=== PATIENT | male | born 1940 | race Caucasian/White ===

== ENCOUNTER 2016-11-11 05:53 | Day surgery (SDC) | payer MEDICARE, OTHER ==
[2016-11-11] MEDS ORDERED: Lactated Ringers 1,000 ML IV SCH (07:00)
[2016-11-11] MEDS ORDERED: DIPRIVAN 200 MG/20 ML IV ONE (08:00)
[2016-11-11] MEDS ORDERED: Versed 2 MG/2 ML Injection IV ONE (08:00)
[2016-11-11] MEDS ORDERED: Lactated Ringers 1,000 ML IV ONE (08:51)
[2016-11-11 09:55] VITALS: O2SAT 98
[2016-11-11 10:36] VITALS: BP 159/96; PULSE 58
--- NOTE | 2016-11-11 10:38 | OP ---
SURGERY DATE/TIME: 11/11/2016 0746 PREOPERATIVE DIAGNOSIS: Screening colonoscopy. POSTOPERATIVE DIAGNOSES: 1) Two large broad based ascending colon polyps and one small sessile sigmoid colon polyp. 2) Long tortuous colon difficult exam. PROCEDURE: Colonoscopy. SURGEON: Ravindra Collins M.D. ANESTHESIA: MAC by Shankar Boateng CRNA. ESTIMATED BLOOD LOSS: Minimal. SPECIMENS: Two hot snare polypectomies from ascending colon polyps and one hot forceps polypectomy of descending colon polyp. DESCRIPTION OF PROCEDURE: The patient was taken to the endoscopy suite and underwent monitored anesthesia. Digital rectal exam showed normal sphincter tone and no internal lesions. The scope was inserted into the rectum and sequentially the entire colonic mucosa was traversed. There was great difficulty reaching the ascending colon and took multiple attempts to pass the hepatic flexure. There were two large broad based sessile polyps present in the ascending colon pericecal area. The first was initially biopsied with forceps but was found to be too large to be removed in this fashion. Therefore we switched to a snare. It was snared at the base and electrocautery was used to remove the entire lesions. Unfortunately it was unable to be retrieved but again a piece had been removed with the forceps prior to this polyp being removed. Position was lost and then again with great difficulty reaching the ascending colon. The other lesion was removed with the snare and retrieved in a trap immediately will be available for pathology testing. These two lesions were very close proximity. They were removed in their entirety and base was cauterized. Upon withdrawal another sessile polyp was encountered in the sigmoid colon and was removed with hot forceps in its entirety with good hemostasis. The scope was removed and the patient was transferred to the recovery room in good condition. Pathology is pending and he will follow up in the office in one week.
== END 2016-11-11 10:15 | disposition home or self-care (01) ==
LOC: SDC 05:53
PROVIDERS: ATTEND Family Medicine
PROC: 0DBK8ZX Excision of Ascending Colon, Via Natural or Artificial Opening Endoscopic, Diagnostic (ICD-10-PCS; principal; 2016-11-11)
PROC: 0DBM8ZX Excision of Descending Colon, Via Natural or Artificial Opening Endoscopic, Diagnostic (ICD-10-PCS; 2016-11-11)
DX: D12.2 Benign neoplasm of ascending colon (principal); D12.5 Benign neoplasm of sigmoid colon; I10 Essential (primary) hypertension
CPT/HCPCS: 00810; 36415; 88305; 99100; J2250; J2704

== ENCOUNTER 2016-11-21 09:21 | Emergency (ER) | payer MEDICARE, OTHER ==
[2016-11-21] MEDS ORDERED: Adacel Vial IM ONE ×2 (09:32→09:49)
[2016-11-21] MEDS ORDERED: XYLOCAINE 1%/Epi 1:100000 MDV 20 ML IJ ONE (09:32)
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
[2016-11-21 10:01] LABS: Mean Cell Volume 75.6 fl (78-100); Mean Corpuscular Hemoglobin 23.7 pg (26-32); Mean Platelet Volume 9.7 fl (6-9.5); Platelet Count 280 K/mm3 (150-450); Red Blood Count 4.47 M/mm3 (4.1-5.6); Red Cell Distribution Width 19.2 % (11.5-14.0); White Blood Count 8.5 K/mm3 (4.0-10.5)
[2016-11-21] MEDS ORDERED: XYLOCAINE 1% HCL 20 ML MDV IJ ONE (10:01)
[2016-11-21] MEDS ORDERED: XYLOCAINE 1% HCL 20 ML MDV ONE (10:02)
--- NOTE | 2016-11-21 10:08 | XRAY ---
Indication: Posterior head injury/laceration. Multiple contiguous axial images obtained through the head without contrast. Comparison: None Tiny focus of posterior scalp swelling/laceration near the vertex. No acute intracranial hemorrhage, abnormal extra-axial fluid collection, or mass effect. Age-appropriate global atrophy and minimal periventricular degenerative microvascular ischemia. Bony calvarium intact. Visualized paranasal sinuses and mastoid air cells are clear. Impression: Tiny posterior scalp swelling/laceration. Otherwise nonacute senile brain. CTDI 50.55
[2016-11-21 10:11] LABS: INR 2.66 (0.8-3.0); PROTIME 30.3 SECONDS (8.83-12.87)
[2016-11-21 10:35] VITALS: BP 128/63; PULSE 90; O2SAT 97
== END 2016-11-21 10:35 | disposition home or self-care (01) ==
LOC: ED 09:21
PROC: 0HQ0XZZ Repair Scalp Skin, External Approach (ICD-10-PCS; principal; 2016-11-21)
DX: S01.01XA Laceration without foreign body of scalp, initial encounter (principal); S09.90XA Unspecified injury of head, initial encounter; Z79.01 Long term (current) use of anticoagulants; W45.8XXA Other foreign body or object entering through skin, initial encounter; E11.9 Type 2 diabetes mellitus without complications; I10 Essential (primary) hypertension; Z79.899 Other long term (current) drug therapy; Z79.84 Long term (current) use of oral hypoglycemic drugs; Z79.4 Long term (current) use of insulin
CPT/HCPCS: 12011; 36415; 70450; 82962; 85027; 85610; 90471; 90715; 96372; 99284

== ENCOUNTER 2016-12-27 12:26 | Observation (INO) | payer MEDICARE, OTHER ==
[2016-12-27] MEDS ORDERED: Nitrostat 0.4 MG (ED) SL ONE (12:43)
[2016-12-27] MEDS ORDERED: BABY ASPIRIN 81 MG CHEW PO ONE ×2 (12:43→13:03)
[2016-12-27] MEDS ORDERED: Sodium Chloride 0.9% 1000 ML 1,000 ML IV SCH (12:45)
[2016-12-27 12:56] LABS: Mean Cell Volume 74.5 fl (78-100); Mean Platelet Volume 9.7 fl (6-9.5); Platelet Count 229 K/mm3 (150-450); Red Blood Count 4.19 M/mm3 (4.1-5.6); Red Cell Distribution Width 20.1 % (11.5-14.0); White Blood Count 9.1 K/mm3 (4.0-10.5)
[2016-12-27] MEDS ORDERED: BABY ASPIRIN 81 MG CHEW ONE (12:57)
[2016-12-27] MEDS ORDERED: Sodium Chloride 0.9% 1000 ML 1,000 ML ONE (12:57)
[2016-12-27 12:58] LABS: Mean Corpuscular Hemoglobin 23.8 pg (26-32)
[2016-12-27] MEDS ORDERED: NITRO-BID 2% UD PACKETS TOP ONE (13:03)
[2016-12-27] MEDS ORDERED: NITRO-BID 2% UD PACKETS ONE (13:05)
--- NOTE | 2016-12-27 13:11 | ERPHSYRPT ---
- History of Present Illness Time Seen by Provider: 12/27/16 12:50 Historian: patient Exam Limitations: other Patient Subjective Stated Complaint: chest pain for one hour Triage Nursing Assessment: ambulated to room without difficulty. some slight sob noted with exertion. denies any chest pain at this time. does state arms feel heavy and numb. skin w/d, color normal. heart tones regular, strong. no edema noted. Physician History: PATIENT WITH A HISTORY OF TYPE 2 DIABETES, HYPERTENSION AND CORONARY ARTERY DISEASE COMPLAINS OF SUBSTERNAL CHEST PRESSURE SHARP DISCOMFORT WHILE IN LATTER-DAY 1 HOUR, RADIATES TO RIGHT ARM, ASSOCIATED NUMBNESS AND MARKED DIAPHORESIS. HAS CHRONIC EXERTIONAL DYSPNEA. STATES HIS PAIN RESOLVED PRIOR TO EMERGENCY ROOM ARRIVAL. Timing/Duration: today Activities at Onset: none Quality: pressure, sharpness Location: substernal Chest Pain Radiation: arm Severity of Pain-Max: moderate Severity of Pain-Current: none Associated Symptoms: shortness of breath, diaphoresis Prior Chest Pain/Cardiac Workup: cardiac cath Nitro Today/Relief: no nitro taken today Aspirin Treatment Today: 81 mg x 4, provided by ED Allergies/Adverse Reactions: lisinopril Allergy (Unknown, Verified 12/27/16 12:49) Tightness of Throat naproxen Allergy (Unknown, Verified 12/27/16 12:49) rofecoxib [From Vioxx] Allergy (Unknown, Verified 12/27/16 12:49) Home Medications: Amlodipine Besylate 5 mg [Norvasc 5 mg] 5 mg PO BID 11/06/16 [History] Atorvastatin Calcium [Lipitor] 20 mg PO DAILY 11/06/16 [History] Calcium Carbonate [Calcium] 1,500 mg PO DAILY 11/06/16 [History] Carvedilol 12.5 mg [Coreg 12.5 mg] 12.5 mg PO BID 11/06/16 [History] Docusate Sodium 100 mg [Colace 100 MG] 200 mg PO DAILY 11/06/16 [History] Glimepiride 4 mg [Amaryl 4 mg] 4 mg PO DAILY 11/06/16 [History] Metformin HCl 500 mg [Glucophage 500 MG] 1,000 mg PO BID 11/06/16 [History ] Omeprazole 20 MG [Prilosec 20 mg] 20 mg PO BID 11/06/16 [History] Simethicone [Gas Relief] 250 mg PO BID 11/06/16 [History] Warfarin Sodium 2 mg [Coumadin 2 MG] 7.5 mg PO 3XW 11/06/16 [History] Warfarin Sodium 5 mg [Coumadin 5 MG] 5 mg PO 3XW 11/06/16 [History] Isosorbide Mononitrate 30 mg [Imdur 30 MG] 30 mg PO DAILY 12/27/16 [History ] NPH, Human Insulin Isophane [Humulin N] 40 unit SQ BID 12/27/16 [History] Hx Tetanus, Diphtheria Vaccination/Date Given: Yes (11/21/16) Hx Influenza Vaccination/Date Given: Yes Hx Pneumococcal Vaccination/Date Given: Yes - Review of Systems Constitutional: No Fever, No Chills Eyes: No Symptoms Ears, Nose, & Throat: No Symptoms Respiratory: No Cough, No Dyspnea Cardiac: Chest Pain, No Edema, No Syncope Abdominal/Gastrointestinal: No Symptoms, No Abdominal Pain, No Nausea, No Vomiting, No Diarrhea Genitourinary Symptoms: No Symptoms, No Dysuria Musculoskeletal: No Symptoms, No Back Pain, No Neck Pain Skin: No Rash Neurological: No Dizziness, No Focal Weakness, No Sensory Changes Psychological: No Symptoms Endocrine: No Symptoms All Other Systems: Reviewed and Negative - Past Medical History Pertinent Past Medical History: Yes Neurological History: No Pertinent History ENT History: No Pertinent History Cardiac History: Hypertension Respiratory History: Sleep Apnea Endocrine Medical History: Diabetes Type II Musculoskeletal History: No Pertinent History GI Medical History: GERD History: No Pertinent History Psycho-Social History: No Pertinent History Male Reproductive Disorders: No Pertinent History - Past Surgical History Past Surgical History: Yes Neuro Surgical History: No Pertinent History Cardiac: Cardiac Catheterization Respiratory: No Pertinent History Gastrointestinal: No Pertinent History Genitourinary: No Pertinent History Musculoskeletal: Orthopedic Surgery Male Surgical History: Other Other Surgical History: left knee replacemnet,back surgery. colonoscopy. penal pump. heart cath pt dosent know why he had it - Social History Smoking Status: Former smoker Exposure to second hand smoke: No Drug Use: none Patient Lives Alone: No - Nursing Vital Signs Nursing Vital Signs: Initial Vital Signs Temperature 97.8 F 12/27/16 12:41 Pulse Rate 66 12/27/16 12:41 Respiratory Rate 16 12/27/16 12:41 Blood Pressure 121/28 12/27/16 12:41 O2 Sat by Pulse Oximetry 96 12/27/16 12:41 Pain Scale Pain Intensity 0 - Physical Exam General Appearance: no apparent distress, alert Eye Exam: PERRL/EOMI, eyes nml inspection Ears, Nose, Throat Exam: normal ENT inspection, moist mucous membranes Neck Exam: normal inspection, non-tender, supple, full range of motion Respiratory Exam: normal breath sounds, lungs clear, No respiratory distress Cardiovascular Exam: regular rate/rhythm, normal heart sounds Gastrointestinal/Abdomen Exam: soft, normal bowel sounds, No tenderness, No mass Back Exam: normal inspection, No CVA tenderness, No vertebral tenderness Extremity Exam: normal inspection, normal range of motion Neurologic Exam: alert, oriented x 3, cooperative, normal mood/affect, sensation nml, No motor deficits Skin Exam: normal color, warm, dry SpO2: 96 Oxygen Delivery: Room Air - Course EKG Interpreted by Me: RATE, Sinus Rhythm, Left Normanna Deviation (FLAT T WAVES LATERALLY) - Radiology Exams Chest X-ray Interpretation: Interpreted by me (MODERATE CARDIOMEGALY, WITHOUT INFILTRATES OR CONGESTIVE HEART FAILURE) Ordered Tests: Active Orders 24 hr Category Date Time Status Bedrest ROUTINE Activity 12/27/16 14:08 Ordered Bedrest with BRP/BSC ROUTINE Activity 12/27/16 14:08 Ordered Accucheck ACHS Care 12/27/16 14:08 Ordered Admission/Status Order ROUTINE Care 12/27/16 14:08 Ordered Call Admit Doctor for Orders ROUTINE Care 12/27/16 14:08 Ordered Cps Team Lead STAT Care 12/27/16 12:43 Active Code Status Order ROUTINE Care 12/27/16 14:08 Ordered EKG-ER Only STAT Care 12/27/16 12:43 Active IV Care Q6H Care 12/27/16 14:08 Ordered IV Insertion STAT Care 12/27/16 12:43 Active Implement Chest Pain Pathway ROUTINE Care 12/27/16 14:08 Ordered Oxygen-ED Only NASAL CANNULA 2 lpm Care 12/27/16 12:43 Active Luke Hose, Apply ROUTINE Care 12/27/16 14:08 Ordered Telemetry ROUTINE Care 12/27/16 14:08 Ordered Vital Signs Q4H Care 12/27/16 14:08 Ordered Weight,Daily 0600 Care 12/27/16 14:08 Ordered 2000 Calorie ADA Diet 12/27/16 Dinner Ordered Cardiac Diet Diet 12/27/16 Dinner Ordered CHEST 1 VIEW (PORTABLE) Stat Exams 12/27/16 12:43 Taken CBC W DIFF Stat Lab 12/27/16 12:45 Completed CMP Stat Lab 12/27/16 12:45 Completed LIPID PROFILE AM.LAB Lab 12/28/16 04:00 Ordered Manual Differential NC Stat Lab 12/27/16 12:45 Completed NT PRO BNP Stat Lab 12/27/16 13:03 Completed PROTIME WITH INR Stat Lab 12/27/16 12:45 Completed TROPONIN Q3H Lab 12/27/16 12:45 Completed TROPONIN Q3H Lab 12/27/16 15:45 Ordered TROPONIN Q3H Lab 12/27/16 18:45 Ordered TROPONIN Q3H Lab 12/27/16 21:45 Ordered TROPONIN Q3H Lab 12/28/16 00:45 Ordered EKG Q8HX2,QAMX3,PRN RT 12/27/16 14:08 Ordered Pulse Oximetry Q4H RT 12/27/16 14:08 Ordered Transfer Order Routine Transfer 12/27/16 Ordered Medication Summary Generic Name Dose Route Start Last Admin Trade Name Freq PRN Reason Stop Dose Admin Sodium Chloride 1,000 mls @ 50 mls/hr 12/27/16 12:45 12/27/16 13:00 Sodium Chloride 0.9% 1000 Ml IV 01/26/17 12:44 50 mls/hr .Q20H JOEY Administration Discontinued Medications Generic Name Dose Route Start Last Admin Trade Name Freq PRN Reason Stop Dose Admin Aspirin 324 mg 12/27/16 12:43 12/27/16 13:00 Baby Aspirin 81 Mg Chew PO 12/27/16 12:44 324 mg STAT ONE Administration Aspirin Confirm 12/27/16 12:57 Baby Aspirin 81 Mg Chew Administered 12/27/16 12:58 Dose 324 mg .ROUTE .STK-MED ONE Aspirin 324 mg 12/27/16 13:03 12/27/16 13:09 Baby Aspirin 81 Mg Chew PO 12/27/16 13:04 Not Given STAT ONE Nitroglycerin 0.4 mg 12/27/16 12:43 12/27/16 13:04 Nitrostat 0.4 Mg (Ed) SL 12/27/16 12:44 Not Given STAT ONE Nitroglycerin 1 gm 12/27/16 13:03 12/27/16 13:06 Nitro-Bid 2% Ud Packets TOP 12/27/16 13:04 1 gm STAT ONE Administration Nitroglycerin Confirm 12/27/16 13:05 Nitro-Bid 2% Ud Packets Administered 12/27/16 13:06 Dose 1 gm .ROUTE .STK-MED ONE Lab/Rad Data: Laboratory Result Diagrams 12/27/16 12:45 12/27/16 12:45 Laboratory Results 12/27/16 12/27/16 12/27/16 Range/Units 13:03 12:45 12:45 WBC (4.0-10.5) K/mm3 RBC (4.1-5.6) M/mm3 Hgb (12.5-18.0) gm/dl Hct (42-50) % MCV (78-100) fl MCH (26-32) pg MCHC (32-36) g/dl RDW (11.5-14.0) % Plt Count (150-450) K/mm3 MPV (6-9.5) fl Segmented Neutrophils (36.-66.) % Lymphocytes (Manual) (24-44) % Monocytes (Manual) (0.0-12.0) % Differential Comment Platelet Estimate (NORMAL) Poikilocytosis Anisocytosis INR 2.66 (0.8-3.0) Sodium (136-145) mEq/L Potassium (3.5-5.1) mEq/L Chloride (98-107) mEq/L Carbon Dioxide (21-32) mEq/L Anion Gap (5-15) MEQ/L BUN (9-20) mg/dL Creatinine (0.55-1.30) mg/dl Estimated GFR ML/MIN Glucose (70-110) MG/DL Calcium (8.5-10.1) mg/dL Total Bilirubin (0.2-1.0) mg/dL AST (15-37) U/L ALT (12-78) U/L Alkaline Phosphatase (46-116) U/L Troponin I < 0.017 (0.000-0.056) ng/ml NT-Pro-B Natriuret Pep 302 (0-450) pg/ml Serum Total Protein (6.4-8.2) gm/dL Albumin (3.4-5.0) g/dL 12/27/16 12/27/16 Range/Units 12:45 12:45 WBC 9.1 (4.0-10.5) K/mm3 RBC 4.19 (4.1-5.6) M/mm3 Hgb 10.0 L (12.5-18.0) gm/dl Hct 31.2 L (42-50) % MCV 74.5 L (78-100) fl MCH 23.8 L (26-32) pg MCHC 32.1 (32-36) g/dl RDW 20.1 H (11.5-14.0) % Plt Count 229 (150-450) K/mm3 MPV 9.7 H (6-9.5) fl Segmented Neutrophils 57 (36.-66.) % Lymphocytes (Manual) 36 (24-44) % Monocytes (Manual) 7 (0.0-12.0) % Differential Comment ABNORMAL Platelet Estimate NORMAL (NORMAL) Poikilocytosis 1+ Anisocytosis 1+ INR (0.8-3.0) Sodium 136 (136-145) mEq/L Potassium 4.2 (3.5-5.1) mEq/L Chloride 102 (98-107) mEq/L Carbon Dioxide 21.0 (21-32) mEq/L Anion Gap 16.9 H (5-15) MEQ/L BUN 16 (9-20) mg/dL Creatinine 1.12 (0.55-1.30) mg/dl Estimated GFR > 60 ML/MIN Glucose 193 H (70-110) MG/DL Calcium 8.7 (8.5-10.1) mg/dL Total Bilirubin 0.40 (0.2-1.0) mg/dL AST 17 (15-37) U/L ALT 25 (12-78) U/L Alkaline Phosphatase 62 (46-116) U/L Troponin I (0.000-0.056) ng/ml NT-Pro-B Natriuret Pep (0-450) pg/ml Serum Total Protein 7.0 (6.4-8.2) gm/dL Albumin 3.4 (3.4-5.0) g/dL - Progress Progress Note: 12/27/16 14:04 PATIENT ADMINISTERED BABY ASA X 4, NITROPASTE 1" ANTERIOR CHEST WALL, REMAINS PAIN FREE THROUGHOUT EMERGENCY VISIT Discussed with Dr.: Other (DISCUSSED WITH DR WILD AT 1400 FOR ADMISSION) - Departure Time of Disposition: 14:10 Departure Disposition: Observation Clinical Impression: ACUTE CHEST PAIN Condition: Stable Critical Care Time: No Referrals: KWABENA BEARD [Primary Care Provider] -
[2016-12-27 13:14] LABS: ANISOCYTOSIS 1+; Platelet Estimate NORMAL (NORMAL); Poikilocytosis 1+; Total Cells Counted 100
[2016-12-27 13:19] LABS: ALBUMIN 3.4 g/dL (3.4-5.0); ALKALINE PHOSPHATASE 62 U/L (46-116); ANION GAP 16.9 MEQ/L (5-15); BLOOD UREA NITROGEN 16 mg/dL (9-20); CHLORIDE 102 mEq/L (98-107); Glucose 193 MG/DL (70-110); Potassium 4.2 mEq/L (3.5-5.1); SGOT/AST 17 U/L (15-37); SGPT/ALT 25 U/L (12-78); SODIUM 136 mEq/L (136-145)
[2016-12-27 13:20] LABS: INR 2.66 (0.8-3.0); PROTIME 30.3 SECONDS (8.83-12.87)
[2016-12-27] MEDS ORDERED: TYLENOL 325 MG PO PRN (14:08)
[2016-12-27] MEDS ORDERED: MAALOX ES 30 ML UNIT DOSE PO PRN (14:08)
[2016-12-27] MEDS ORDERED: Nitrostat 0.4 MG Tablet SL PRN (14:08)
[2016-12-27] MEDS ORDERED: MORPHINE SULFATE 2 MG INJ IV PRN (14:08)
[2016-12-27] MEDS ORDERED: Zofran 4 MG/2 ML VIAL IV PRN (14:08)
[2016-12-27] MEDS ORDERED: Senokot-S Tablet PO PRN (14:08)
[2016-12-27] MEDS ORDERED: NovoLOG Insulin SQ SCH (17:00)
[2016-12-27] MEDS ORDERED: Glucophage 500 MG PO SCH (17:00)
[2016-12-27] MEDS ORDERED: NovoLIN R SQ PRN (17:04)
[2016-12-27] MEDS: Protonix 40MG Tablet PO SCH ×2 (17:46→22:42)
[2016-12-27] MEDS: Novolin N SQ SCH ×2 (17:46→23:08)
[2016-12-27] MEDS: NORVASC 5 MG PO SCH ×2 (17:51→22:42)
--- NOTE | 2016-12-27 19:01 | XRAY ---
Indication: Chest pain. Comparison: None Portable chest demonstrates bilateral calcified pleural plaquing. No focal infiltrate, consolidation, or large effusion. Heart is not enlarged for AP portable technique. Bony thorax intact with mild degenerative changes. Impression: Nonacute chest with chronic features.
[2016-12-27] MEDS ORDERED: Mylicon 80MG PO SCH (22:00)
[2016-12-27] MEDS: NITRO-BID 2% UD PACKETS TOP SCH (22:41)
[2016-12-27] MEDS: COREG 12.5 MG PO SCH (22:41)
[2016-12-28] MEDS: NITRO-BID 2% UD PACKETS TOP SCH (06:20)
[2016-12-28] MEDS ORDERED: Coumadin 2 MG PO SCH (07:30)
[2016-12-28 07:50] VITALS: BP 130/62; PULSE 63; O2SAT 99
[2016-12-28] MEDS ORDERED: AMARYL 4 MG PO SCH (08:00)
[2016-12-28] MEDS: Novolin N SQ SCH (08:27)
--- NOTE | 2016-12-28 08:29 | PCM.SSS ---
History of Present Illness - Chief Complaint Chief Complaint: accute chest pain History of Present Illness: is a 76 year old male with DM on insulin who was admitted yesterday for chest pain. He started having substernal chest pain radiating to the R arm with diaphoresis and shortness of breath. The pain resolved by the time he got to the ER. He is not complaining of anything to me this morning but did tell the RN he is having some SOB with walking. - Review of Systems Constitutional: Other (cold intolerance x 1 yr) Respiratory: Short Of Breath Cardiac: Chest Pain, Syncope (3 weeks ago, evaluation done outpatient) Psychological: No Anxiety, No Depression, No Suicidal Ideations Hematologic/Lymphatic: Anemia (mild) All Other Systems: Reviewed and Negative Medications & Allergies Home Medications: Home Medication List Amlodipine Besylate 5 mg [Norvasc 5 mg] 5 mg PO BID 11/06/16 [History Confirmed 12/27/16] Atorvastatin Calcium [Lipitor] 20 mg PO DAILY 11/06/16 [History Confirmed ] Calcium Carbonate [Calcium] 1,500 mg PO DAILY 11/06/16 [History Confirmed ] Carvedilol 12.5 mg [Coreg 12.5 mg] 12.5 mg PO BID 11/06/16 [History Confirmed 12/27/16] Docusate Sodium 100 mg [Colace 100 MG] 200 mg PO DAILY 11/06/16 [History Confirmed 12/27/16] Glimepiride 4 mg [Amaryl 4 mg] 4 mg PO DAILY 11/06/16 [History Confirmed 12/27/16] Metformin HCl 500 mg [Glucophage 500 MG] 1,000 mg PO BID 11/06/16 [ History Confirmed 12/27/16] Omeprazole 20 MG [Prilosec 20 mg] 20 mg PO BID 11/06/16 [History Confirmed 12/27] Simethicone [Gas Relief] 250 mg PO BID 11/06/16 [History Confirmed 12/27/16] Warfarin Sodium 2 mg [Coumadin 2 MG] 7.5 mg PO 3XW 11/06/16 [History Confirmed 12/27/16] Warfarin Sodium 5 mg [Coumadin 5 MG] 5 mg PO 3XW 11/06/16 [History Confirmed 12/27/16] Isosorbide Mononitrate 30 mg [Imdur 30 MG] 30 mg PO DAILY 12/27/16 [ History Confirmed 12/27/16] NPH, Human Insulin Isophane [Humulin N] 40 unit SQ BID 12/27/16 [History Confirmed 12/27/16] Allergies/Adverse Reactions: Allergies Allergy/AdvReac Type Severity Reaction Status Date / Time lisinopril Allergy Unknown Tightness Verified 12/27/16 12:49 of Throat naproxen Allergy Unknown Verified 12/27/16 12:49 rofecoxib [From Vioxx] Allergy Unknown Verified 12/27/16 12:49 - Past Medical History Past Medical History: No Neurological History: No Pertinent History ENT History: No Pertinent History Cardiac History: High Cholesterol Respiratory History: No Pertinent History Endocrine Medical History: Diabetes Type II Musculoskelatal History: Arthritis GI Medical History: No Pertinent History History: No Pertinent History Pyscho-Social History: No Pertinent History Male Reproductive Disorders: No Pertinent History - Past Surgical History Past Surgical History: No Neuro Surgical History: No Pertinent History Cardiac History: No Pertinent History Respiratory Surgery: No Pertinent History GI Surgical History: No Pertinent History Genitourinary Surgical Hx: No Pertinent History Musculskeletal Surgical Hx: Orthopedic Surgery Male Surgical History: No Pertinent History Other Surgical History: left knee replacemnet,back surgery. colonoscopy. penal pump. heart cath pt dosent know why he had it - Social History Smoking Status: Never smoker Exposure to second hand smoke: No Alcohol: None Drug Use: none - Physical Exam Vital Signs: Vital Signs - 24 hr Temp Pulse Pulse Resp BP Pulse Ox 12/28/16 07:49 97.5 F 63 18 130/62 99 12/28/16 07:03 97 12/28/16 06:53 70 18 99 12/28/16 04:00 97.6 F 73 18 113/59 98 12/27/16 23:35 97.9 F 71 20 133/74 97 12/27/16 21:22 72 16 98 12/27/16 15:19 98.6 F 58 L 12 144/63 96 12/27/16 14:27 59 L 15 115/57 98 12/27/16 14:16 96 12/27/16 13:30 62 17 119/47 98 12/27/16 13:09 65 16 136/58 95 12/27/16 12:41 97.8 F 67 66 16 121/28 96 Oxygen-Last 24 hours O2 Percentage 2 Liters = 28% O2 Percentage 2 Liters = 28% O2 Percentage 2 Liters = 28% O2 Percentage 2 Liters = 28% O2 Percentage 2 Liters = 28% O2 Percentage 2 Liters = 28% O2 Percentage 2 Liters = 28% O2 Percentage 2 Liters = 28% General Appearance: no apparent distress Neurologic Exam: alert, oriented x 3, cooperative Eye Exam: eyes nml inspection Ears, Nose, Throat Exam: moist mucous membranes Neck Exam: normal inspection, non-tender, supple, No lymphadenopathy Respiratory Exam: normal breath sounds, lungs clear, No crackles/rales, No rhonchi, No wheezing Cardiovascular Exam: regular rate/rhythm, normal heart sounds, No murmur Gastrointestinal/Abdomen Exam: soft, normal bowel sounds, No tenderness, No distention, No mass, No guarding, No rebound Back Exam: normal inspection Extremity Exam: swelling (Trace LE edema bilat) Skin Exam: normal color, warm, dry Results - Labs Lab/Micro Results: Accuchecks Date 12/28/16 Date 12/27/16 Time 22:30 Time 16:30 Accucheck Value: 155 Accucheck Value: 155 Lab Results-Last 24 Hours 12/27/16 12/27/16 12/27/16 Range/Units 16:02 18:42 21:38 Troponin I < 0.017 < 0.017 < 0.017 (0.000-0.056) ng/ml Triglycerides (30-200) mg/dL Cholesterol (100-200) mg/dL LDL Cholesterol (5-99) mg/dL HDL Cholesterol (35-60) mg/dL Heart Disease Risk Ratio 12/28/16 12/28/16 Range/Units 00:52 05:15 Troponin I < 0.017 (0.000-0.056) ng/ml Triglycerides 106 (30-200) mg/dL Cholesterol 94 L (100-200) mg/dL LDL Cholesterol 41 (5-99) mg/dL HDL Cholesterol 30 L (35-60) mg/dL Heart Disease Risk Ratio 3.1 Accuchecks Date 12/28/16 Date 12/27/16 Time 22:30 Time 16:30 Accucheck Value: 155 Accucheck Value: 155 - Other Procedures and Tests Respiratory Therapy 12/27/16 21:21 Oxygen NASAL CANNULA 2 lpm 12/29/16 05:00 EKG ONCE 12/30/16 05:00 EKG ONCE Assessment/Plan (1) Chest pain Current Visit: Yes Status: Acute Qualifiers: Chest pain type: other chest pain Qualified Code(s): R07.89 - Other chest pain; R07.8 - Other chest pain Assessment & Plan: NH ruled out. His last stress test was over 1 yr ago - will send report to his bioprocessing manufacturing technician in [place], advised pt he may need an outpatient stress test. Code(s): R07.9 - CHEST PAIN, UNSPECIFIED (2) Diabetes mellitus Current Visit: Yes Status: Acute Qualifiers: Diabetes mellitus type: type 2 Diabetes mellitus complication status: without complication Diabetes mellitus termite control service representative insulin use: with termite control service representative use Qualified Code(s): E11.9 - Type 2 diabetes mellitus without complications ; Z79.4 - nursing home (current) use of insulin Assessment & Plan: He is on lantus at home, and also states he takes 40 units of insulin BID in addition to that - I've advised the pt and his son that they need to let me know CHRIS which kind of insulin that is. I assume it is a mix; at any rate he should NOT be taking regular insulin 40 units BID. He did have some low BS this morning, resolved with po intake. Code(s): E11.9 - TYPE 2 DIABETES MELLITUS WITHOUT COMPLICATIONS (3) Dyspnea Current Visit: Yes Status: Acute Qualifiers: Dyspnea type: dyspnea on exertion Qualified Code(s): R06.09 - Other forms of dyspnea Assessment & Plan: Will see if pt qualifies for O2 this morning. Otherwise, oK to d/c home. Code(s): R06.00 - DYSPNEA, UNSPECIFIED Hospital Summary - Hospital Course Hospital Course: Admitted with CP, NH ruled out. He did have some hypoglycemia the next morning. He is complaining to the nurse of some dyspnea; has been on O2 here in the hospital. Will see if he qualifies for home O2 before discharge. He is to f/u with his bioprocessing manufacturing technician. - Vitals & Intake/Output Vital Signs: Vital Signs Temperature 97.5 F 12/28/16 07:49 Pulse Rate 63 12/28/16 07:49 Respiratory Rate 18 12/28/16 07:49 Blood Pressure 130/62 12/28/16 07:49 O2 Sat by Pulse Oximetry 99 12/28/16 07:49 Oxygen-Last Documented O2 Percentage 2 Liters = 28% Intake & Output: Intake & Output 12/25/16 12/26/16 12/27/16 12/28/16 11:59 11:59 11:59 11:59 Intake Total 1998 Output Total 3330 Balance -1331 Weight 119.023 kg - Lab Result Diagrams: 12/27/16 12:45 12/27/16 12:45 Lab Results-Last 24 Hrs: Accuchecks Date 12/28/16 Date 12/27/16 Time 22:30 Time 16:30 Accucheck Value: 155 Accucheck Value: 155 Lab Results-Last 24 Hours 12/27/16 12/27/16 12/27/16 Range/Units 16:02 18:42 21:38 Troponin I < 0.017 < 0.017 < 0.017 (0.000-0.056) ng/ml Triglycerides (30-200) mg/dL Cholesterol (100-200) mg/dL LDL Cholesterol (5-99) mg/dL HDL Cholesterol (35-60) mg/dL Heart Disease Risk Ratio 12/28/16 12/28/16 Range/Units 00:52 05:15 Troponin I < 0.017 (0.000-0.056) ng/ml Triglycerides 106 (30-200) mg/dL Cholesterol 94 L (100-200) mg/dL LDL Cholesterol 41 (5-99) mg/dL HDL Cholesterol 30 L (35-60) mg/dL Heart Disease Risk Ratio 3.1 Micro Results-Entire Visit: Accuchecks Date 12/28/16 Date 12/27/16 Time 22:30 Time 16:30 Accucheck Value: 155 Accucheck Value: 155 - Procedures and Test Procedures and Tests throughout Hospitalization: Therapy Orders & Screens 12/27/16 20:30 EKG ONCE Comment: 12/27/16 21:21 Oxygen NASAL CANNULA 2 lpm Comment: Diagnosis: accute chest pain 12/28/16 05:00 EKG ONCE Comment: 12/29/16 05:00 EKG ONCE Comment: 12/30/16 05:00 EKG ONCE Comment: - Discharge Disposition: Home, Self-Care Condition: Stable Prescriptions: No Action Warfarin Sodium 5 mg [Coumadin 5 MG] 5 mg PO 3XW Warfarin Sodium 2 mg [Coumadin 2 MG] 7.5 mg PO 3XW Simethicone [Gas Relief] 250 mg PO BID Omeprazole 20 MG [Prilosec 20 mg] 20 mg PO BID Metformin HCl 500 mg [Glucophage 500 MG] 1,000 mg PO BID Glimepiride 4 mg [Amaryl 4 mg] 4 mg PO DAILY Docusate Sodium 100 mg [Colace 100 MG] 200 mg PO DAILY Carvedilol 12.5 mg [Coreg 12.5 mg] 12.5 mg PO BID Calcium Carbonate [Calcium] 1,500 mg PO DAILY Atorvastatin Calcium [Lipitor] 20 mg PO DAILY Amlodipine Besylate 5 mg [Norvasc 5 mg] 5 mg PO BID Isosorbide Mononitrate 30 mg [Imdur 30 MG] 30 mg PO DAILY NPH, Human Insulin Isophane [Humulin N] 40 unit SQ BID Follow up with: KWABENA BEARD [Primary Care Provider] -
[2016-12-28] MEDS: Protonix 40MG Tablet PO SCH (09:42)
[2016-12-28] MEDS: NORVASC 5 MG PO SCH (09:42)
[2016-12-28] MEDS: COREG 12.5 MG PO SCH (09:42)
[2016-12-28] MEDS ORDERED: Colace 100 MG PO SCH (10:00)
[2016-12-28] MEDS ORDERED: Imdur 30 MG PO SCH (10:00)
[2016-12-28] MEDS ORDERED: Calcium 500MG W/Vit D Tablet PO SCH (10:00)
[2016-12-28] MEDS ORDERED: Mylicon 80MG PO SCH (10:00)
[2016-12-28] MEDS ORDERED: NORVASC 5 MG PO SCH (10:00)
[2016-12-28] MEDS ORDERED: Ecotrin 325 MG PO SCH (10:00)
[2016-12-28] MEDS ORDERED: ZOCOR 20MG PO SCH (10:00)
[2016-12-28] MEDS ORDERED: Coumadin 5 MG PO SCH ×2 (18:00)
[2016-12-29] MEDS ORDERED: Coumadin 2.5 MG PO SCH (18:00)
== END 2016-12-28 10:00 | disposition home or self-care (01) ==
LOC: ED 12:26 → MED SURG 14:36
PROVIDERS: ADMIT Family Medicine; ATTEND Family Medicine
DX: R07.89 Other chest pain (principal); E11.9 Type 2 diabetes mellitus without complications; Z79.4 Long term (current) use of insulin; Z79.01 Long term (current) use of anticoagulants; Z79.899 Other long term (current) drug therapy
CPT/HCPCS: 36000; 36415; 71010; 80053; 80061; 82962; 83036; 83721; 83880; 84484; 85025; 85610; 93005; 93041; 93268; 94760; 96360; 96361; 99285; G0378; A9270-GY

== ENCOUNTER 2019-07-03 08:22 | Day surgery (SDC) | payer MEDICARE, OTHER ==
[2019-07-03] MEDS ORDERED: Lactated Ringers 1,000 ML IV ONE (08:29)
--- NOTE | 2019-07-03 08:30 | HP ---
DATE OF SURGERY: 07/03/2019 HISTORY OF PRESENT ILLNESS: The patient is an 78 year-old with last colonoscopy more than ten years ago and had a polyp, had some right lower quadrant aches and pains over the past five months. He has had some change in bowel movements, increased urgency and loose stools. No bloody stools. Family history negative for colon cancer and negative inflammatory bowel disease. PAST MEDICAL HISTORY: Includes diabetes, had some lung disease, some joint problems. Hypertension followed by a donor specialist. History of stent in the past. PAST SURGICAL HISTORY: Bladder surgery 2019. Right knee surgery in the past. History of stent in the past. MEDICATIONS: Metformin, carvedilol, ferrous sulfate, stool softener, amlodipine, diltiazem, isosorbide mononitrate, atorvastatin, magnesium oxide, omeprazole, warfarin, Novolin. ALLERGIES: LISINOPRIL. ROFECOXIB. NAPROXEN. FAMILY HISTORY: Negative in regards to this problem. SOCIAL HISTORY: No current smoking. REVIEW OF SYSTEMS: Fourteen systems reviewed. No chest pain or palpitations. Pertinent for as noted above. Heart disease and stent in the past. PHYSICAL EXAMINATION: GENERAL: No acute distress. HEENT: Sclerae nonicteric. NECK: No JVD. CHEST: Equal excursion, nonlabored breathing. CVS: Regular rate and rhythm. ABDOMEN: Soft with some mild tenderness in the right lower quadrant. No peritoneal signs. EXTREMITIES: No significant edema. NEURO: Alert, oriented, moving extremities symmetrically. No gross motor deficits noted. RECTAL: Deferred timed to endoscopy exam. IMPRESSION: History of polyps, last colonoscopy ten years ago. He has had some vague right-sided aches, lower abdominal aches. I feel he will benefit from follow up screening colonoscopy as his last colonoscopy is more than ten years ago and he had history of polyps in the past. He was shown the risk sheet, explained the procedure in detail including but not limited to bleeding or infection, risk of bowel injury or perforation possibly requiring open procedure, small risk of missed or nondiagnosis or incomplete exam possibly requiring barium enema, other studies or procedures, general risk of anesthesia or sedation but not limited to, will proceed with outpatient follow-up screening colonoscopy.
[2019-07-03] MEDS: Lactated Ringers 1,000 ML IV SCH (09:12)
[2019-07-03] MEDS ORDERED: DIPRIVAN 200 MG/20 ML IV ONE ×2 (09:34→10:31)
[2019-07-03] MEDS ORDERED: KEFZOL 1 GM ONE (11:04)
[2019-07-03] MEDS ORDERED: SUBLIMAZE 100 MCG/2 ML ONE (11:26)
[2019-07-03 11:35] VITALS: O2SAT 99
[2019-07-03 14:21] VITALS: BP 125/60; PULSE 58
--- NOTE | 2019-07-04 08:21 | OP ---
SURGERY DATE/TIME: 07/03/2019 1017 PREOPERATIVE DIAGNOSIS: History of polyp, last colonoscopy ten years or so ago and in need for follow up screening colonoscopy. History of some intermittent right abdominal aches. POSTOPERATIVE DIAGNOSES: 1) Limited bowel prep. 2) Multiple colon polyps. 3) Diverticulosis. 4) Small internal and external hemorrhoids. PROCEDURES: 1) Colonoscopy to cecum with random cold biopsies right colon to evaluate for microscopic colitis. 2) Hot biopsy removal of small cecal polyp, small transverse colon polyps, small descending colon polyp. 3) Hot biopsy removal of four ascending colon polyps removed with hot snare polypectomy. 4) Hot snare polypectomy of sigmoid colon polyps x2. SURGEON: Dr. Max Macedo. ANESTHESIA: MAC. ESTIMATED BLOOD LOSS: Minimal. INDICATIONS: As noted above. Risks and benefits explained in detail but not limited to and consent obtained. DESCRIPTION OF PROCEDURE AND FINDINGS: The patient is taken to the operating room. MAC anesthesia introduced. After official time out and no disagreement with planned procedure, digital rectal exam did not reveal any rectal masses. He did have some small internal and external hemorrhoids. Video colonoscope was passed up through the limited prepped colon with several areas of liquidy semi-solid stool. It required quite a bit of time this was suction irrigated clear. The scope slowly passed through a very tortuous colon. With external pressure passed around to the cecum, appendiceal orifice and valve well visualized. Prep overall was limited. Otherwise a small polyp in the ascending colon removed with hot biopsy forceps. Some random cold biopsies taken of right colon. There was no evidence of any microscopic colitis. Random cold biopsies taken to evaluate for microscopic colitis. The tip of the terminal ileum was grossly unremarkable. The scope is slowly and carefully withdrawn. There were four polyps in the ascending colon removed with hot snare polypectomy with brief bursts of cautery, ranging in size from 4 mm to 7 or 8 mm. The scope pulled back to transverse colon. Another small polyp removed with hot biopsy forceps with brief bursts of cautery. Another small polyp in the descending colon removed with hot biopsy forceps. Back in the sigmoid colon two polyps ranging in size 5 to 8 mm range removed with hot snare polypectomy with brief bursts of cautery. Again, hot snare was used as he is going to have to go back on his blood thinners. He did have some diverticulosis. Again, the prep overall was limited for very small lesions. He had some small internal and external hemorrhoids. There were no signs of any large masses or obstructing lesions. The scope was withdrawn. He had at least ten polyps. There were no immediate complications. Findings discussed with the family out in the waiting area. I will see him back in the office next week.
== END 2019-07-03 12:15 | disposition home or self-care (01) ==
LOC: SDC 08:22
PROVIDERS: ATTEND Surgery
DX: Z12.11 Encounter for screening for malignant neoplasm of colon (principal); D12.0 Benign neoplasm of cecum; D12.2 Benign neoplasm of ascending colon; D12.5 Benign neoplasm of sigmoid colon; D12.3 Benign neoplasm of transverse colon; K57.30 Diverticulosis of large intestine without perforation or abscess without bleeding; K64.4 Residual hemorrhoidal skin tags; K64.8 Other hemorrhoids; Z86.010 Personal history of colon polyps; E11.9 Type 2 diabetes mellitus without complications; I10 Essential (primary) hypertension; Z79.899 Other long term (current) drug therapy; Z79.01 Long term (current) use of anticoagulants
CPT/HCPCS: 82962; 99100; J0690; J2704; J3010

== ENCOUNTER 2021-06-24 17:32 | Observation (INO) | payer MEDICARE, OTHER ==
--- NOTE | 2021-06-24 18:07 | ERPHSYRPT ---
- History of Present Illness Time Seen by Provider: 06/24/21 17:35 Source: patient Exam Limitations: no limitations Patient Subjective Stated Complaint: SOB Triage Nursing Assessment: Patient brought back to ED via w/c and transferred self to Physician History: 80 years old male with history of atrial fibrillation on Coumadin status post pacemaker placement, recent CABG, hypertension, hyperlipidemia, diabetes mellitus is sent in ER by primary care with positive CTA for pulmonary embolism. Patient reports he has been having shortness of breath for the last couple of months since he has his CABG done which is lately getting worse initially with activity and now having shortness of breath even resting. Also reports mild increased swelling lower extremities. No fever or chills reported. Does have history of bladder cancer getting chemotherapy. Denies any chest pain but some tightness and discomfort. Did not miss dose of Coumadin. Timing/Duration: week(s), gradual onset, worse Activities at Onset: activity, rest Severity of Dyspnea-Max: moderate Severity of Dyspnea-Current: moderate Possible Cause: unknown cause Modifying Factors: Improves With: oxygen. Worsens With: deep breath, exertion Associated Symptoms: chest pain/discomfort, edema, ankle swelling, painful breathing, tightness Allergies/Adverse Reactions: lisinopril Allergy (Severe, Verified 06/24/21 19:17) Tightness of Throat rofecoxib [From Vioxx] Allergy (Severe, Verified 06/24/21 19:17) Tightness in Chest "felt like about to have a heart attack" naproxen Allergy (Unknown, Verified 06/24/21 19:17) pt states "i don't really know" "don't remember but something" Home Medications: Atorvastatin Calcium [Lipitor] 20 mg PO DAILY 11/06/16 [History] Metformin HCl 500 mg [Glucophage 500 MG] 1,000 mg PO BID 11/06/16 [History] Amlodipine Besylate 10 mg PO DAILY 06/19/19 [History] Aspirin 81 mg PO DAILY 06/19/19 [History] Carvedilol 6.25 mg [Coreg 6.25 MG] 6.25 mg PO BID 06/19/19 [History] Ferrous Sulfate 325 mg [Feosol 325 mg] 325 mg PO DAILY 06/19/19 [History] Insulin NPH/Reg 70/30 [Novolin 70/30] 12 unit SQ QID 06/19/19 [History] Omeprazole 40 mg PO DAILY 06/19/19 [History] Acetaminophen 350 mg PO Q4H PRN 06/24/21 [History] Digoxin 0.125 mg Tablet [Lanoxin 0.125MG TABLET] 0.125 mg PO DAILY 06/24/21 [History] Docusate Sodium 100 mg [Colace 100 MG] 2 cap PO DAILY 06/24/21 [History] Famotidine 40 mg PO DAILY 06/24/21 [History] Furosemide 40 mg PO DAILY 06/24/21 [History] Potassium Chloride 20 meq PO DAILY 06/24/21 [History] Hx Tetanus, Diphtheria Vaccination/Date Given: Yes (11/21/16) Hx Influenza Vaccination/Date Given: Yes Hx Pneumococcal Vaccination/Date Given: No Immunizations Up to Date: Yes Travel Risk - International Travel Have you traveled outside of the country in past 3 weeks: No - Coronavirus Screening Are you exhibiting any of the following symptoms?: No Close contact with a COVID-19 positive Pt in past 14-21 Days: No - Vaccine Status Have you recieved a Covid-19 vaccination: No - Review of Systems Constitutional: Fatigue, Weakness Eyes: No Symptoms Ears, Nose, & Throat: No Symptoms Respiratory: Dyspnea, Dyspnea on Exertion ([place]) Cardiac: Edema Abdominal/Gastrointestinal: No Symptoms Genitourinary Symptoms: No Symptoms Musculoskeletal: No Symptoms Skin: No Symptoms Neurological: No Symptoms Psychological: No Symptoms Endocrine: No Symptoms Hematologic/Lymphatic: No Symptoms Immunological/Allergic: No Symptoms - Past Medical History Pertinent Past Medical History: No Neurological History: No Pertinent History ENT History: No Pertinent History Cardiac History: High Cholesterol, Hypertension Respiratory History: No Pertinent History Endocrine Medical History: Diabetes Type II Musculoskeletal History: Arthritis GI Medical History: No Pertinent History History: No Pertinent History Psycho-Social History: No Pertinent History Male Reproductive Disorders: No Pertinent History - Past Surgical History Past Surgical History: No Neuro Surgical History: No Pertinent History Cardiac: Cardiac Catheterization, Cardiac Stent Respiratory: No Pertinent History Gastrointestinal: No Pertinent History Genitourinary: Other Musculoskeletal: Orthopedic Surgery Male Surgical History: No Pertinent History Other Surgical History: left knee replacemnet,back surgery. colonoscopy. penal pump. bladder surgery - Social History Smoking Status: Former smoker Exposure to second hand smoke: No Drug Use: none Patient Lives Alone: No - Nursing Vital Signs Nursing Vital Signs: Initial Vital Signs Temperature 98.5 F 06/24/21 17:36 Pulse Rate 91 H 06/24/21 17:36 Respiratory Rate 18 06/24/21 17:36 Blood Pressure 100/60 06/24/21 17:36 O2 Sat by Pulse Oximetry 98 06/24/21 17:36 Pain Scale Pain Intensity 0 - Physical Exam General Appearance: no apparent distress, alert Eye Exam: PERRL/EOMI, eyes nml inspection Ears, Nose, Throat Exam: hearing grossly normal, normal ENT inspection, normal pharynx Neck Exam: normal inspection, non-tender, supple, full range of motion Respiratory Exam: rhonchi, No accessory muscle use Cardiovascular/Chest Exam: normal heart sounds, regular rate/rhythm, edema Abdominal/Gastrointestinal Exam: soft, normal bowel sounds, No tenderness Extremity Exam: non-tender, normal range of motion Neurologic Exam: alert, oriented x 3, cooperative Skin Exam: normal color SpO2 Interpretation: normal SpO2: 97 O2 Delivery: Room Air - Course EKG Interpreted by Me: RATE (83, PACED ), Right Parlin Deviation, Non-specific ST Changes Ordered Tests: Medication Summary Discontinued Medications Generic Name Dose Route Start Last Admin Trade Name Freq PRN Reason Stop Dose Admin Acetaminophen 650 mg 06/24/21 21:32 Acetaminophen 325 Mg Tablet PO 07/24/21 21:31 Q4H PRN PRN PAIN AND/OR FEVER Albuterol/Ipratropium 3 ml 06/24/21 21:32 Ipratropium/Albuterol Sulfate 3 Ml Ampul.Neb IH 07/24/21 21:31 Q4HPRN PRN SHORTNESS OF BREATH/WHEEZING Amlodipine Besylate 10 mg 06/25/21 18:00 06/26/21 09:50 Amlodipine Besylate 5 Mg Tablet PO 07/25/21 17:59 10 mg DAILY JOEY Administration Apixaban Confirm 06/24/21 23:27 Apixaban 2.5 Mg Tablet Administered 06/24/21 23:28 Dose 5 mg .ROUTE .STK-MED ONE Apixaban 5 mg 06/25/21 00:05 06/25/21 00:06 Apixaban 2.5 Mg Tablet PO 06/25/21 00:06 5 mg ONCE ONE Administration Apixaban 5 mg 06/25/21 10:00 Apixaban 2.5 Mg Tablet PO 07/25/21 09:59 BID JOEY Aspirin 81 mg 06/25/21 18:00 06/26/21 09:50 Aspirin 81 Mg Tablet.Ec PO 07/25/21 17:59 81 mg DAILY JOEY Administration Carvedilol Confirm 06/24/21 23:27 Carvedilol 6.25 Mg Tablet Administered 06/24/21 23:28 Dose 6.25 mg .ROUTE .STK-MED ONE Carvedilol 6.25 mg 06/25/21 00:05 06/25/21 00:06 Carvedilol 6.25 Mg Tablet PO 06/25/21 00:06 6.25 mg ONCE ONE Administration Carvedilol 6.25 mg 06/25/21 10:00 06/26/21 09:51 Carvedilol 6.25 Mg Tablet PO 07/25/21 09:59 6.25 mg BID JOEY Administration Digoxin 0.125 mg 06/25/21 18:00 06/26/21 09:51 Digoxin 0.125 Mg Tablet PO 07/25/21 17:59 0.125 mg DAILY JOEY Administration Docusate Sodium 100 mg 06/25/21 18:00 Docusate Sodium 100 Mg Capsule PO 07/25/21 17:59 DAILY JOEY Docusate Sodium 200 mg 06/25/21 18:00 06/26/21 09:50 Docusate Sodium 100 Mg Capsule PO 07/25/21 17:59 200 mg DAILY JOEY Administration Enoxaparin Sodium 100 mg 06/24/21 19:00 Enoxaparin Sodium 100 Mg/Ml Syringe 1 mg/kg (100 mg) 07/24/21 18:59 SQ Q24H [facility] Enoxaparin Sodium 98 mg 06/24/21 21:32 06/25/21 00:12 Enoxaparin Sodium 100 Mg/Ml Syringe SQ 07/24/21 21:31 98 mg Q12H JOEY Administration Enoxaparin Sodium 100 mg 06/25/21 07:15 06/25/21 08:30 Enoxaparin Sodium 100 Mg/Ml Syringe SQ 07/24/21 21:31 Not Given Q12H [facility] Enoxaparin Sodium 100 mg 06/25/21 10:00 Enoxaparin Sodium 100 Mg/Ml Syringe SQ 07/25/21 07:14 Q12HT JOEY Enoxaparin Sodium 100 mg 06/25/21 10:00 06/26/21 09:56 Enoxaparin Sodium 100 Mg/Ml Syringe SQ 07/25/21 09:59 100 mg Q12HT JOEY Administration Famotidine 40 mg 06/25/21 18:00 06/26/21 09:50 Famotidine 20 Mg Tablet PO 07/25/21 17:59 40 mg DAILY JOEY Administration Ferrous Sulfate 325 mg 06/25/21 18:00 06/26/21 09:50 Ferrous Sulfate 325 Mg Tablet PO 07/25/21 17:59 325 mg DAILY JOEY Administration Furosemide 40 mg 06/25/21 18:00 06/26/21 09:56 Furosemide 40 Mg Tablet PO 07/25/21 17:59 40 mg DAILY JOEY Administration Heparin Sodium (Beef Lung) 500 units 06/26/21 10:34 06/26/21 11:10 Heparin Lock Flush Pf 500 Units/5 Ml Syringe PORT FLUSH 07/26/21 10:33 500 units PRN PRN Administration IV PORT FLUSH Magnesium Sulfate/Dextrose 100 mls @ 100 mls/hr 06/24/21 18:15 06/24/21 19:04 Magnesium 1 Gm / 100 Ml D5w IV 06/24/21 20:14 100 mls/hr Q1H JOEY Administration Magnesium Sulfate/Dextrose Confirm 06/24/21 18:32 Magnesium 1 Gm / 100 Ml D5w Administered 06/24/21 18:33 Dose 100 mls @ ud IV .STK-MED ONE Magnesium Sulfate/Dextrose Confirm 06/24/21 19:03 Magnesium 1 Gm / 100 Ml D5w Administered 06/24/21 19:04 Dose 100 mls @ ud IV .STK-MED ONE Sodium Chloride Confirm 06/24/21 23:28 Sodium Chloride 0.9% 250 Ml Administered 06/24/21 23:29 Dose 250 mls @ ud IV .STK-MED ONE Remdesivir 200 mg/ Sodium 250 mls @ 125 mls/hr 06/25/21 00:05 06/25/21 00:07 Chloride IV 06/25/21 02:04 125 mls/hr ONCE ONE Administration Insulin Human Isoph/Insulin Regular 12 unit 06/25/21 17:30 06/26/21 09:56 Insulin Nph/Reg 70/30 SQ 07/25/21 17:29 12 unit QID JOEY Administration Non-Formulary Medication 350 mg 06/25/21 17:12 Acetaminophen [Acetaminophen] PO Q4H PRN PAIN Pantoprazole Sodium 40 mg 06/25/21 10:00 06/25/21 10:58 Pantoprazole 40 Mg Vial IV 07/25/21 09:59 40 mg Q24H10 JOEY Administration Pantoprazole Sodium 40 mg 06/25/21 18:00 06/26/21 09:56 Protonix (Pantoprazole) 40 Mg Tablet PO 07/25/21 17:59 40 mg DAILY JOEY Administration Potassium Chloride 20 meq 06/25/21 18:00 06/26/21 09:50 Potassium Chloride 10 Meq Tablet PO 07/25/21 17:59 20 meq DAILY JOEY Administration Remdesivir Confirm 06/24/21 23:28 Remdesivir 100 Mg Vial Administered 06/24/21 23:29 Dose 200 mg IV .STK-MED ONE Simvastatin 20 mg 06/25/21 18:00 06/26/21 09:51 Simvastatin 20 Mg Tablet PO 07/25/21 17:59 20 mg DAILY JOEY Administration Lab/Rad Data: Laboratory Result Diagrams 06/24/21 17:57 06/24/21 17:57 Laboratory Results 06/24/21 06/24/21 06/24/21 Range/Units 20:20 18:04 17:57 WBC (4.0-10.5) K/mm3 RBC (4.1-5.6) M/mm3 Hgb (12.5-18.0) gm/dl Hct (42-50) % MCV (78-100) fl MCH (26-32) pg MCHC (32-36) g/dl RDW (11.5-14.0) % Plt Count (150-450) K/mm3 MPV (7.5-11.0) fl Gran % (36.0-66.0) % Eos # (Auto) (0-0.5) Absolute Lymphs (auto) (1.0-4.6) Absolute Monos (auto) (0.0-1.3) Lymphocytes % (24.0-44.0) % Monocytes % (0.0-12.0) % Eosinophils % (0.00-5.0) % Basophils % (0.0-0.4) % Absolute Granulocytes (1.4-6.9) Basophils # (0-0.4) PT (9.4-12.5) SECONDS INR (0.8-3.0) Sodium (137-145) mmol/L Potassium (3.5-5.1) mmol/L Chloride (98-107) mmol/L Carbon Dioxide (22-30) mmol/L Anion Gap (5-15) MEQ/L BUN (9-20) mg/dL Creatinine (0.66-1.25) mg/dL Estimated GFR ML/MIN Glucose (74-106) mg/dL Calcium (8.4-10.2) mg/dL Total Bilirubin (0.2-1.3) mg/dL AST (17-59) U/L ALT (0-50) U/L Alkaline Phosphatase (38-126) U/L Troponin I 0.029 0.029 (0.000-0.034) ng/mL NT-Pro-B Natriuret Pep (0-1800) pg/mL Serum Total Protein (6.3-8.2) g/dL Albumin (3.5-5.0) g/dL Influenza Type A Ag NEGATIVE (NEGATIVE) Influenza Type B Ag NEGATIVE (NEGATIVE) RSV (PCR) NEGATIVE (Negative) SARS-CoV-2 (PCR) POSITIVE A (NEGATIVE) 06/24/21 06/24/21 06/24/21 Range/Units 17:57 17:57 17:57 WBC 8.4 (4.0-10.5) K/mm3 RBC 3.99 L (4.1-5.6) M/mm3 Hgb 9.7 L (12.5-18.0) gm/dl Hct 30.8 L (42-50) % MCV 77.2 L (78-100) fl MCH 24.3 L (26-32) pg MCHC 31.5 L (32-36) g/dl RDW 17.9 H (11.5-14.0) % Plt Count 223 (150-450) K/mm3 MPV 10.2 (7.5-11.0) fl Gran % 63.8 (36.0-66.0) % Eos # (Auto) 0.33 (0-0.5) Absolute Lymphs (auto) 1.63 (1.0-4.6) Absolute Monos (auto) 1.04 (0.0-1.3) Lymphocytes % 19.5 L (24.0-44.0) % Monocytes % 12.5 H (0.0-12.0) % Eosinophils % 4.0 (0.00-5.0) % Basophils % 0.2 (0.0-0.4) % Absolute Granulocytes 5.33 (1.4-6.9) Basophils # 0.02 (0-0.4) PT 16.9 H (9.4-12.5) SECONDS INR 1.43 (0.8-3.0) Sodium 132 L (137-145) mmol/L Potassium 4.0 (3.5-5.1) mmol/L Chloride 103 (98-107) mmol/L Carbon Dioxide 19 L (22-30) mmol/L Anion Gap 14.4 (5-15) MEQ/L BUN 12 (9-20) mg/dL Creatinine 0.94 (0.66-1.25) mg/dL Estimated GFR > 60.0 ML/MIN Glucose 92 (74-106) mg/dL Calcium 8.5 (8.4-10.2) mg/dL Total Bilirubin 1.00 (0.2-1.3) mg/dL AST 26 (17-59) U/L ALT 19 (0-50) U/L Alkaline Phosphatase 85 (38-126) U/L Troponin I (0.000-0.034) ng/mL NT-Pro-B Natriuret Pep 3070 H (0-1800) pg/mL Serum Total Protein 5.9 L (6.3-8.2) g/dL Albumin 3.0 L (3.5-5.0) g/dL Influenza Type A Ag (NEGATIVE) Influenza Type B Ag (NEGATIVE) RSV (PCR) (Negative) SARS-CoV-2 (PCR) (NEGATIVE) - Progress Progress: improved, re-examined Air Movement: good Progress Note: 06/24/21 19:[address] Jones, patient is started on Lovenox and is being admitted. Blood Culture(s) Obtained: No Antibiotics given: No Discussed with DrKaren: Anuja Will see patient in: hospital (observation) Counseled pt/family regarding: lab results, diagnosis - Departure Departure Disposition: Observation Clinical Impression: Pulmonary embolism Condition: Stable Critical Care Time: No
[2021-06-24 18:11] LABS: Absolute Neutrophil Ct (ANC) 5.33 (1.4-6.9); Basophil (Absolute #) 0.02 (0-0.4); Eosinophil (Absolute #) 0.33 (0-0.5); Hematocrit 30.8 % (42-50); Hemoglobin 9.7 gm/dl (12.5-18.0); Lymphocyte (Absolute #) 1.63 (1.0-4.6); Lymphocytes % 19.5 % (24.0-44.0); Mean Cell Volume 77.2 fl (78-100); Mean Corpuscular Hemoglobin 24.3 pg (26-32); Mean Corpuscular Hgb Concent. 31.5 g/dl (32-36); Mean Platelet Volume 10.2 fl (7.5-11.0); Monocyte (Absolute #) 1.04 (0.0-1.3); Monocytes % 12.5 % (0.0-12.0); Neutrophil % 63.8 % (36.0-66.0); Platelet Count 223 K/mm3 (150-450); Red Blood Count 3.99 M/mm3 (4.1-5.6); Red Cell Distribution Width 17.9 % (11.5-14.0); White Blood Count 8.4 K/mm3 (4.0-10.5)
[2021-06-24 18:17] LABS: INR 1.43 (0.8-3.0); PROTIME 16.9 SECONDS (9.4-12.5)
[2021-06-24] MEDS ORDERED: Magnesium 1 Gm / 100 Ml D5W*** 100 ML IV ONE ×2 (18:32→19:03)
[2021-06-24] MEDS: Magnesium 1 Gm / 100 Ml D5W*** 100 ML IV SCH ×2 (18:33→19:04)
[2021-06-24 18:51] LABS: INFLUENZA A NEGATIVE (NEGATIVE); INFLUENZA B NEGATIVE (NEGATIVE); RESPIRATORY SYNCTIAL VIRUS NEGATIVE (Negative)
[2021-06-24] MEDS ORDERED: ENOXAPARIN SODIUM SQ SCH ×2 (19:00→21:32)
[2021-06-24 19:12] LABS: ALKALINE PHOSPHATASE 85 U/L (38-126); ANION GAP 14.4 MEQ/L (5-15); BLOOD UREA NITROGEN 12 mg/dL (9-20); CHLORIDE 103 mmol/L (98-107); Calcium 8.5 mg/dL (8.4-10.2); Carbon Dioxide 19 mmol/L (22-30); Creatinine 1 0.94 mg/dL (0.66-1.25); EST GLOMERULAR FILTRATION RATE > 60.0 ML/MIN; Glucose 92 mg/dL (74-106); NT PRO BNP 3070 pg/mL (0-1800); SGOT/AST 26 U/L (17-59); SGPT/ALT 19 U/L (0-50); SODIUM 132 mmol/L (137-145); Total Protein 5.9 g/dL (6.3-8.2)
[2021-06-24 19:23] LABS: SARS-CoV-2 Xpert Express POSITIVE (NEGATIVE)
[2021-06-24] MEDS ORDERED: TYLENOL 325 MG PO PRN (21:32)
[2021-06-24] MEDS ORDERED: DUONEB 0.5-3 MG/3 ml Neb IH PRN (21:32)
[2021-06-24] MEDS ORDERED: ELIQUIS 2.5 MG TABLET ONE (23:27)
[2021-06-24] MEDS ORDERED: Coreg 6.25 MG ONE (23:27)
[2021-06-24] MEDS ORDERED: REMDESIVIR IV ONE (23:28)
[2021-06-24] MEDS ORDERED: Sodium Chloride 0.9% 250 ML 250 ML IV ONE (23:28)
[2021-06-25] MEDS ORDERED: ELIQUIS 2.5 MG TABLET PO ONE (00:05)
[2021-06-25] MEDS ORDERED: REMDESIVIR 200 MG in Sodium Chloride 0.9% 250 ML 250 ML IV ONE (00:05)
[2021-06-25] MEDS ORDERED: Coreg 6.25 MG PO ONE (00:05)
[2021-06-25 06:13] LABS: Absolute Neutrophil Ct (ANC) 4.73 (1.4-6.9); Basophil (Absolute #) 0.01 (0-0.4); Eosinophil % 4.8 % (0.00-5.0); Eosinophil (Absolute #) 0.34 (0-0.5); Hematocrit 30.4 % (42-50); Hemoglobin 9.5 gm/dl (12.5-18.0); Lymphocyte (Absolute #) 1.16 (1.0-4.6); Lymphocytes % 16.3 % (24.0-44.0); Mean Cell Volume 77.9 fl (78-100); Mean Corpuscular Hemoglobin 24.4 pg (26-32); Mean Corpuscular Hgb Concent. 31.3 g/dl (32-36); Mean Platelet Volume 10.4 fl (7.5-11.0); Monocyte (Absolute #) 0.88 (0.0-1.3); Monocytes % 12.4 % (0.0-12.0); Neutrophil % 66.4 % (36.0-66.0); Platelet Count 203 K/mm3 (150-450); Red Cell Distribution Width 17.9 % (11.5-14.0); White Blood Count 7.1 K/mm3 (4.0-10.5)
[2021-06-25 06:42] LABS: ALKALINE PHOSPHATASE 86 U/L (38-126); ANION GAP 13.6 MEQ/L (5-15); BLOOD UREA NITROGEN 10 mg/dL (9-20); CHLORIDE 100 mmol/L (98-107); Calcium 8.2 mg/dL (8.4-10.2); Carbon Dioxide 20 mmol/L (22-30); Creatinine 1 0.83 mg/dL (0.66-1.25); EST GLOMERULAR FILTRATION RATE > 60.0 ML/MIN; Glucose 124 mg/dL (74-106); Potassium 3.5 mmol/L (3.5-5.1); SGOT/AST 24 U/L (17-59); SGPT/ALT 17 U/L (0-50); SODIUM 130 mmol/L (137-145); Total Protein 6.1 g/dL (6.3-8.2)
[2021-06-25] MEDS ORDERED: ENOXAPARIN SODIUM SQ SCH ×2 (07:15→10:00)
[2021-06-25] MEDS ORDERED: PROTONIX 40 MG IV IV SCH (10:00)
[2021-06-25] MEDS ORDERED: ELIQUIS 2.5 MG TABLET PO SCH (10:00)
[2021-06-25] MEDS: Coreg 6.25 MG PO SCH ×2 (10:59→21:26)
[2021-06-25] MEDS: ENOXAPARIN SODIUM SQ SCH ×2 (10:59→21:26)
[2021-06-25] MEDS ORDERED: ACETAMINOPHEN 325 MG PO PRN (17:12)
[2021-06-25] MEDS ORDERED: Colace 100 MG PO SCH (18:00)
[2021-06-25] MEDS: ECOTRIN 81 MG PO SCH (18:06)
[2021-06-25] MEDS: Lasix 40 MG PO SCH (18:06)
[2021-06-25] MEDS: Lanoxin 0.125MG TABLET PO SCH (18:06)
[2021-06-25] MEDS: FEOSOL 325 MG PO SCH (18:06)
[2021-06-25] MEDS: Klor Con 10 MEQ PO SCH (18:06)
[2021-06-25] MEDS: Colace 100 MG PO SCH (18:06)
[2021-06-25] MEDS: NORVASC 5 MG PO SCH (18:07)
[2021-06-25] MEDS: ZOCOR 20MG PO SCH (18:07)
[2021-06-25] MEDS: Pepcid 20 MG PO SCH (18:07)
[2021-06-25] MEDS: Protonix 40MG Tablet PO SCH (18:07)
[2021-06-25] MEDS: Novolin 70/30 SQ SCH ×2 (18:07→21:57)
[2021-06-26 05:43] LABS: Hemoglobin 9.4 gm/dl (12.5-18.0); Mean Cell Volume 77.3 fl (78-100); Mean Corpuscular Hemoglobin 24.2 pg (26-32); Mean Corpuscular Hgb Concent. 31.3 g/dl (32-36); Platelet Count 225 K/mm3 (150-450); Red Blood Count 3.88 M/mm3 (4.1-5.6); Red Cell Distribution Width 17.9 % (11.5-14.0); White Blood Count 7.2 K/mm3 (4.0-10.5)
[2021-06-26 06:02] LABS: ALBUMIN 2.8 g/dL (3.5-5.0); ALKALINE PHOSPHATASE 81 U/L (38-126); ANION GAP 10.2 MEQ/L (5-15); BLOOD UREA NITROGEN 10 mg/dL (9-20); CHLORIDE 100 mmol/L (98-107); Carbon Dioxide 24 mmol/L (22-30); Creatinine 1 0.74 mg/dL (0.66-1.25); EST GLOMERULAR FILTRATION RATE > 60.0 ML/MIN; Glucose 130 mg/dL (74-106); Potassium 3.6 mmol/L (3.5-5.1); SGOT/AST 32 U/L (17-59); SGPT/ALT 22 U/L (0-50); SODIUM 130 mmol/L (137-145); Total Protein 5.8 g/dL (6.3-8.2)
[2021-06-26 09:30] VITALS: BP 136/76
[2021-06-26] MEDS: ECOTRIN 81 MG PO SCH (09:50)
[2021-06-26] MEDS: Colace 100 MG PO SCH (09:50)
[2021-06-26] MEDS: Klor Con 10 MEQ PO SCH (09:50)
[2021-06-26] MEDS: Pepcid 20 MG PO SCH (09:50)
[2021-06-26] MEDS: FEOSOL 325 MG PO SCH (09:50)
[2021-06-26] MEDS: NORVASC 5 MG PO SCH (09:50)
[2021-06-26] MEDS: Coreg 6.25 MG PO SCH (09:51)
[2021-06-26] MEDS: Lanoxin 0.125MG TABLET PO SCH (09:51)
[2021-06-26] MEDS: ZOCOR 20MG PO SCH (09:51)
[2021-06-26] MEDS: Lasix 40 MG PO SCH (09:56)
[2021-06-26] MEDS: Protonix 40MG Tablet PO SCH (09:56)
[2021-06-26] MEDS: ENOXAPARIN SODIUM SQ SCH (09:56)
[2021-06-26] MEDS: Novolin 70/30 SQ SCH (09:56)
[2021-06-26 09:57] VITALS: PULSE 83
[2021-06-26] MEDS ORDERED: NON-FORMULARY ITEM (Atorvastatin Calcium [Lipitor] 20 MG Tablet) PO SCH (10:00)
[2021-06-26] MEDS ORDERED: NON-FORMULARY ITEM (Aspirin [Aspirin] 81 MG Tablet) PO SCH (10:00)
[2021-06-26] MEDS ORDERED: NON-FORMULARY ITEM (Amlodipine Besylate [Amlodipine Besylate] 10 MG Tablet) PO SCH (10:00)
[2021-06-26] MEDS ORDERED: NON-FORMULARY ITEM (Omeprazole [Omeprazole] 40 MG Capsule.Dr) PO SCH (10:00)
[2021-06-26 20:27] VITALS: O2SAT 97
--- NOTE | 2021-07-03 21:23 | PCM.SSS ---
History of Present Illness - Chief Complaint Chief Complaint: PULMONARY Embolism/ COVID + Date: 06/24/21 History of Present Illness: is a 80 year old male. Pt. was found to have a pulmonary embolism with some increased sob despite being on eliquis as directed. Pt. was admitted for observation and a beginning of lovenox. Pt. was found to be covid positive and admitted to covid unit for treatment. - Review of Systems Constitutional: No Fever, No Chills Eyes: No Symptoms Ears, Nose, & Throat: No Symptoms Respiratory: No Cough, No Short Of Breath Cardiac: No Chest Pain, No Edema, No Syncope Abdominal/Gastrointestinal: No Abdominal Pain, No Nausea, No Vomiting, No Diarrhea Genitourinary Symptoms: No Dysuria Musculoskeletal: No Back Pain, No Neck Pain Skin: No Rash Neurological: No Dizziness, No Focal Weakness, No Sensory Changes Psychological: No Symptoms Endocrine: No Symptoms Hematologic/Lymphatic: No Symptoms Immunological/Allergic: No Symptoms Medications & Allergies Home Medications: Home Medication List Atorvastatin Calcium [Lipitor] 20 mg PO DAILY 11/06/16 [History Confirmed 06/24/21] Metformin HCl 500 mg [Glucophage 500 MG] 1,000 mg PO BID 11/06/16 [History Confirmed 06/24/21] Amlodipine Besylate 10 mg PO DAILY 06/19/19 [History Confirmed 06/24/21] Aspirin 81 mg PO DAILY 06/19/19 [History Confirmed 06/24/21] Carvedilol 6.25 mg [Coreg 6.25 MG] 6.25 mg PO BID 06/19/19 [History Confirmed 06/24/21] Ferrous Sulfate 325 mg [Feosol 325 mg] 325 mg PO DAILY 06/19/19 [History Confirmed 06/24/21] Insulin NPH/Reg 70/30 [Novolin 70/30] 12 unit SQ QID 06/19/19 [History Confirmed 06/25/21] Omeprazole 40 mg PO DAILY 06/19/19 [History Confirmed 06/24/21] Acetaminophen 350 mg PO Q4H PRN 06/24/21 [History Confirmed 06/24/21] Digoxin 0.125 mg Tablet [Lanoxin 0.125MG TABLET] 0.125 mg PO DAILY 06/24/21 [History Confirmed 06/24/21] Docusate Sodium 100 mg [Colace 100 MG] 2 cap PO DAILY 06/24/21 [History C onfirmed 06/24/21] Famotidine 40 mg PO DAILY 06/24/21 [History Confirmed 06/24/21] Furosemide 40 mg PO DAILY 06/24/21 [History Confirmed 06/24/21] Potassium Chloride 20 meq PO DAILY 06/24/21 [History Confirmed 06/24/21] Rivaroxaban [Xarelto] 15 mg PO BID 21 Days #42 tablet 06/26/21 [Rx] Rivaroxaban [Xarelto] 20 mg PO DAILY 14 Days #7 tablet 06/26/21 [Rx] Allergies/Adverse Reactions: Allergies Allergy/AdvReac Type Severity Reaction Status Date / Time lisinopril Allergy Severe Tightness Verified 06/24/21 19:17 of Throat rofecoxib [From Vioxx] Allergy Severe Tightness Verified 06/24/21 19:17 in Chest naproxen Allergy Unknown Verified 06/24/21 19:17 - Past Medical History Past Medical History: No Neurological History: No Pertinent History ENT History: No Pertinent History Cardiac History: High Cholesterol, Hypertension Respiratory History: No Pertinent History Endocrine Medical History: Diabetes Type II Musculoskelatal History: Arthritis GI Medical History: No Pertinent History History: No Pertinent History Pyscho-Social History: No Pertinent History Male Reproductive Disorders: No Pertinent History - Past Surgical History Past Surgical History: No Neuro Surgical History: No Pertinent History Cardiac History: Cardiac Catheterization, Cardiac Stent Respiratory Surgery: No Pertinent History GI Surgical History: No Pertinent History Genitourinary Surgical Hx: Other Musculskeletal Surgical Hx: Orthopedic Surgery Male Surgical History: No Pertinent History Other Surgical History: left knee replacemnet,back surgery. colonoscopy. penal pump. bladder surgery - Social History Smoking Status: Former smoker Exposure to second hand smoke: No Alcohol: None Drug Use: none - Physical Exam General Appearance: no apparent distress, alert Neurologic Exam: alert, oriented x 3, cooperative, normal mood/affect, nml cerebellar function, nml station & gait, sensation nml, No motor deficits Eye Exam: PERRL/EOMI, eyes nml inspection Ears, Nose, Throat Exam: normal ENT inspection, TMs normal, pharynx normal, moist mucous membranes Neck Exam: normal inspection, non-tender, supple, full range of motion Respiratory Exam: normal breath sounds, lungs clear, No respiratory distress Cardiovascular Exam: regular rate/rhythm, normal heart sounds, normal peripheral pulses Gastrointestinal/Abdomen Exam: soft, normal bowel sounds, No tenderness, No mass Back Exam: normal inspection, normal range of motion, No CVA tenderness, No vertebral tenderness Extremity Exam: normal inspection, normal range of motion, pelvis stable Skin Exam: normal color, warm, dry, No rash Lymphatic Exam: No adenopathy Assessment/Plan (1) COVID Status: Acute Code(s): U07.1 - COVID-19 (2) Pulmonary embolism Status: Acute Code(s): I26.99 - OTHER PULMONARY EMBOLISM WITHOUT ACUTE COR PULMONALE Hospital Summary - Hospital Course Hospital Course: Pt. denied any sob throughout hospitalization, after 2 days of lovenox and discussion with his oncologist for which he has prostate cancer it was felt the patient not requiring supplemental oxygen failure of eliquis and hypercoagulable state with prostate cancer plus covid status. The patient having no covid symptoms and ready for discharge will be d/c'd on xarelto. - Vitals & Intake/Output Vital Signs: Vital Signs Temperature 97.7 F 06/26/21 08:00 Pulse Rate 83 06/26/21 09:51 Respiratory Rate 14 06/26/21 09:31 Blood Pressure 136/76 06/26/21 09:51 O2 Sat by Pulse Oximetry 97 06/26/21 20:27 - Lab Result Diagrams: 06/26/21 05:05 06/26/21 05:05 - Procedures and Test Procedures and Tests throughout Hospitalization: Therapy Orders & Screens 06/26/21 04:33 Oxygen Nasal Cannula 2 lpm Comment: Diagnosis: PULMONARY Embolism/ COVID + - Discharge Discharge Date: 06/26/21 Disposition: Home, Self-Care Condition: Stable Prescriptions: New Rivaroxaban [Xarelto] 15 mg PO BID 21 Days #42 tablet Rivaroxaban [Xarelto] 20 mg PO DAILY 14 Days #7 tablet Continue Metformin HCl 500 mg [Glucophage 500 MG] 1,000 mg PO BID Atorvastatin Calcium [Lipitor] 20 mg PO DAILY Aspirin 81 mg PO DAILY Omeprazole 40 mg PO DAILY Amlodipine Besylate 10 mg PO DAILY Ferrous Sulfate 325 mg [Feosol 325 mg] 325 mg PO DAILY Carvedilol 6.25 mg [Coreg 6.25 MG] 6.25 mg PO BID Insulin NPH/Reg 70/30 [Novolin 70/30] 12 unit SQ QID Acetaminophen 350 mg PO Q4H PRN PRN Reason: Pain Potassium Chloride 20 meq PO DAILY Furosemide 40 mg PO DAILY Famotidine 40 mg PO DAILY Docusate Sodium 100 mg [Colace 100 MG] 2 cap PO DAILY Digoxin 0.125 mg Tablet [Lanoxin 0.125MG TABLET] 0.125 mg PO DAILY Discontinued Apixaban [Eliquis 5 mg Tablet] 5 mg PO BID Instructions: Pulmonary Embolism (Blood Clot in the Lungs), Coronavirus Disease 2019 (COVID-19) (DC) Additional Instructions: Follow up with Cancer doctor as soon as possible. Follow up with: KWABENA ROSE [Primary Care Provider] - 07/07/21 1:15 pm Forms: Discharge Instructions
== END 2021-06-26 11:16 | disposition home or self-care (01) ==
LOC: ED 17:32 → MED SURG 20:31
PROVIDERS: ADMIT Family Medicine; ATTEND Family Medicine
DX: U07.1 COVID-19 (principal); I26.99 Other pulmonary embolism without acute cor pulmonale; I48.91 Unspecified atrial fibrillation; I10 Essential (primary) hypertension; E78.5 Hyperlipidemia, unspecified; E11.9 Type 2 diabetes mellitus without complications; C61 Malignant neoplasm of prostate; Z20.828 Contact with and (suspected) exposure to other viral communicable diseases; Z79.899 Other long term (current) drug therapy; Z79.01 Long term (current) use of anticoagulants; Z95.1 Presence of aortocoronary bypass graft
CPT/HCPCS: 0241U; 36000; 36415; 71046; 71260; 80053; 82947; 83735; 83880; 84484; 85025; 85027; 85379; 85610; 93005; 93041; 93268; 94762; 99284; G0378; J0248; J1642; J1650; J1815; J3475; A9270-GY